=== PATIENT | male | born 1970 | race Caucasian/White ===

== ENCOUNTER 2024-01-16 08:32 | Outpatient (OUT) | payer BC, SELFPAY | END 2024-01-16 08:33 | disposition home or self-care (01) | LOC: SLEEP 08:32 | PROVIDERS: PCP Family Medicine; Visit Provider Family Medicine | DX: G47.33 Obstructive sleep apnea (adult) (pediatric) (principal) | CPT/HCPCS: 95810 ==

== ENCOUNTER 2024-02-13 08:27 | Outpatient (OUT) | payer BC, SELFPAY | END 2024-02-13 08:28 | disposition home or self-care (01) | LOC: SLEEP 08:27 | PROVIDERS: PCP Family Medicine; Visit Provider Family Medicine | DX: G47.33 Obstructive sleep apnea (adult) (pediatric) (principal) | CPT/HCPCS: 95811 ==